=== PATIENT | male | born 1940 | race Caucasian/White ===

== ENCOUNTER 2021-05-02 13:23 | Outpatient (REF) | payer MEDICARE, SELFPAY ==
--- OUTSIDE RECORDS SUMMARY | 2021-05-02 13:55 | XMS_ITS | Encounter Summary ---
:1940 Author Organization Department [facility] Address [address] [place] [id number] Care Team Providers Name Role Phone KEMAR GENTILE Primary Care Provider Unavailable Insurance Providers: All historical and current Section Date Range: From patient's date of to the date document was created.This section includes the names of all active insurance providers for the patient. Insurance Type of Plan Start of End of Group Member Insurance Policy P atient's Provider Coverage Name Policy Policy Number ID Provider's Santana's Relationship Coverage Coverage Telephone Name to Policy Number Santana MEDICARE MEDICARE PART Apr 16, PART A [id number] [id number] Edwina LARSEN OBRoshni PATIENT (WNR) (M) A 2007 06A 1 RT Selected Encounter This section includes the information on record at [place] for the Encounter. Date/Time Encounter Type Encounter Description Reason Provider Source Mar 30, 2021 02:51 Outpatient Encounter COMMUNITY CARE PM CONSULT IHE Encounter Template Text not used by [facility] Plan of Treatment: Future Appointments (+ 6 months) and Future Tests (+/- 45 days) The Plan of Treatment section includes future care activities for the patient from all [place] treatment facilities. This section includes future appointments and future orders which are active, pending or scheduled.Future Appointments This section includes appointments that were scheduled to occur 6 months from the date of the Encounter, up to a maximum of 20 appointments. The [facility] Appointment Date/Time Appointment Type Appointment Facili ty Name May 16, 2021 01:00 PM AMBULATORY - MEDICINE [facility] Active, Pending, and Scheduled Orders This section includes a listing of several types of active, pending, and scheduled orders, including clinic medications orders, diagnostic test orders, procedure orders and consult orders; where the start date of the order is 45 days before the date of the Encounter or 45 days after the date of the Encounter. The data comes from all [place] treatment facilities. Test Date/Time Test Type Test Details Facility Name May 14, 2021 12:00 AM Laboratory - Chemistry CBC PROFILE [place] Order BLOOD(LAV-EDTA) SP [facility] May 14, 2021 12:00 AM Laboratory - Chemistry P4 [place] Order GLU,BUN,CREAT,LYTES, [facility] CA LT GREEN(LI HEP) PLASMA SP May 14, 2021 12:00 AM Laboratory - Chemistry LIVER PROFILE LT [place] Order GREEN(LI HEP) PLASMA [facility] SP May 14, 2021 12:00 AM Laboratory - Chemistry LDH,TOTAL LT [place] Order GREEN(LI HEP) PLASMA [facility] SP Social History: Smoking Status (Most current) and Tobacco Use (All prior to encounter date) This section includes the most current, and the historical, smoking and tobacco-related health factors from the [place] facility where the Encounter took place.Current Smoking Status This section includes the most current smoking, or tobacco-related health factor, from the [place] facility where the Encounter took place. Date/Time Current Smoking Status Comment Facility Jan 10, 2020 10:48 AM QUIT TOBACCO USE > 7 YEARS AGO [place] [facility] Tobacco Use History This section includes a history of the smoking, or tobacco-related health factors, that were collected on or before the date of the Encounter. The data comes from the [place] facility where the Encounter took place. Date/Time Smoking Status/Tobacco Use Comment [facility] Sep 21, 2019 03:54 PM QUIT TOBACCO USE > 7 YEARS [place] A[place] [facility] Dec 30, 2018 01:47 PM LIFETIME NON-TOBACCO USER [place] [facility] Aug 25, 2017 01:01 PM VA-TOBACCO FORMER USER [place] [facility] Aug 25, 2017 01:01 PM VA-TOBACCO QUIT 15 YRS OR [place] MORE [facility] Jan 07, 2017 05:34 PM QUIT TOBACCO USE > 7 YEARS [place] A[place] [facility] Jan 03, 2017 02:42 PM LIFETIME NON-TOBACCO USER [place] [facility] Nov 28, 2016 07:51 AM QUIT TOBACCO USE > 7 YEARS [place] AGO Former user of tobacco products quit years ago [facility] Jun 11, 2015 06:09 AM LIFETIME NON-TOBACCO USER LEWIS STOLL [facility] Nov 01, 2003 09:44 AM HISTORY OF SMOKING LEWIS STOLL [facility] Dec 21, 2002 11:18 AM QUIT TOBACCO USE > 7 YEARS [place] AGO [facility] August 10, 2002 10:47 AM HISTORY OF SMOKING LEWIS STOLL [facility] Apr 27, 2001 09:29 AM HISTORY OF SMOKING LEWIS RODGERST [facility] Advance Directives: All historical and current Section Date Range: From patient's date of to the date document was created. This section includes ALL of a patient's completed or amended [facility] Advance and Rescinded Directives. The entries below indicate that a directive exists for the patient, but an actual copy is not included with this document. The data comes from all [place] facilities. Date Advance Directives Provider Source August 08, 2015 ADVANCE DIRECTIVE LEWIS Huddleston [facility] Encounter Notes: All associated encounter notes This section contains the clinical notes associated to the Encounter. Date/Time Encounter Note(s) Provider Source Mar 30, 2021 02:51 PM NONVA NOTE: BONY GARZA [facility] LOCAL TITLE: COMMUNITY CARE COORDINATION PLAN STANDARD TITLE: NONVA NOTE DATE OF NOTE: MAR 30, 2021@14:51 ENTRY DATE: APR 02, 2021@09:00:05 AUTHOR: BONY GARZA COSIGNER: URGENCY: STATUS: COMPLETED COMMUNITY CARE COORDINATION PLAN Has ADDE NDA self-presented to community emergency fa cility Emergency Notification Intake Date Presenting to the Facility: Mar @ 2 :51 pm [facility] Care Hospital Name: Hospital: [facility] Address: [address] [place] [address] City: [place] State: [place] Zip Code: [address] Chief complaint: Altered Mental Status Primary Diagnosis: Patient Admitted? Unknown Community Facility Point of Contact: Name: [employer] Notes in JLV Notification was completed on: 03/31/21 @ 7:50 am EST Patient Discharged: Notification ID #[id number] EOC approved under 1703 by the National ER Notif ication Team [employer] Referral #[id number] /myranda/ BONY GARZA Signed: 04/02/2021 09:03 Receipt Acknowledged By: 04/02/2021 14:36 /myranda/ WILBER DOYLE RN [facility] 04/09/2021 ADDENDUM STATUS: COMPLETED Requested records. /jessie DOYLE RN [facility] Signed: 04/09/2021 10:48
--- OUTSIDE RECORDS SUMMARY | 2021-05-02 13:56 | XMS_ITS | Encounter Summary ---
:1940 Author Organization Department [facility] Address [address] [place] [address] Care Team Providers Name Role Phone KEMAR [...] MEDICARE MEDICARE PART Apr 16, PART A [id number] Edwina LARSEN OBE PATIENT (WNR) (M) A 2007 08A 1 RT Selected Encounter This section includes the information on record at [place] for the Encounter. 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 Date/Time Primary/Secondary Diagnosis Name Provider Source Diagnosis Jan 29, 2021 PRIMARY Chronic CHUCK CAMPO H LEWIS MARTINEZ 02:21 PM lymphocytic leuk [facility] of B-cell type not achieve remis Plan of Treatment: Future Appointments (+ 6 months) and Future Tests (+/- 45 days) The Plan of Treatment section includes future care activities for the patient from all [place] treatment facilities. This section includes future appointments and future orders which are active, pending or scheduled.Future Appointments This section includes appointments that were scheduled to occur 6 months from the date of the Encounter, up to a maximum of 20 appointments. The data comes from all [facility]. Appointment Date/Time Appointment Type Appointment Facili ty Name May 16, 2021 01:00 PM AMBULATORY - MEDICINE [facility] Active, Pending, and Scheduled Orders This section includes a listing of several types of active, pending, and scheduled orders, including clinic medications orders, diagnostic test orders, procedure orders and consult orders; where the start date of the order is 45 days before the date of the Encounter or 45 days after the date of the Encounter. The data comes from all [place] treatment facilities. Test Date/Time Test Type Test Details Facility Name Jan 29, 2021 12:00 AM Laboratory - Chemistry LIVER PROFILE LT [facility] Order GREEN(LI HEP) PLASMA [facility] Jan 29, 2021 12:00 AM Laboratory - Chemistry CBC PROFILE [facility] Order BLOOD(LAV-EDTA) SP [facility] Jan 29, 2021 12:00 AM Laboratory - Chemistry P4 [facility] Order GLU,BUN,CREAT,LYTES, [facility] CA LT GREEN(LI HEP) PLASMA SP Lab Results: +/- 30 days of the encounter This section includes the Chemistry and Hematology Lab Results on record with [facility] for the patient. Radiology Reports and Pathology Reports are provided separately, in subsequent sections.Lab Results This section contains the Chemistry/Hematology Results that were resulted 30 days before or 30 days after the date of the Encounter. Date/Time Source Result Type Result - Unit Interpretation Reference Range Comment Jan 16, 2021 [facility] P4 GLU,BUN,CREAT,LYTES,CA Specimen Type: PLASMA 12:35 PM [facility] Comment: Specimen 1+ Hemolysis Specimen 1+ Icteric Tests performed on [place] (405) SN:[id number] Ordering Provider: CHUCK CAMPO Report Released Date/Time: Sep 26, 2020 02:04 PM [facility] [address] [facility] [address] Performing Lab: [facility] [address] [facility] [address] UREA NITROGEN 15 mg/dL 7-25 SODIUM 136 mmol/L 135-145 POTASSIUM 4.3 mmol/L 3.5-5.0 CHLORIDE 105 mmol/L 100-110 CARBON DIOXIDE 20 mmol/L 20-30 ANION GAP 11 mmol/L 4-16 GLUCOSE 128 mg/dL H 65-100 CREATININE 1.02 mg/dl 0.5-1.5 CALCIUM 9.3 mg/dL 8.5-10.5 eGFR 71 mL/min >60 Jan 16, 2021 12:35 PM [facility] LIVER PROFILE Specimen Type: PLASMA Comment: Specimen 1+ Hemolysis Specimen 1+ Icteric Tests performed on [place] [employer]otripsy (405) [id number] Ordering Provider: CHUCK CAMPO Report Released Date/Time: Sep 26, 2020 02:04 PM Reporting Lab: [facility] [address] [facility] [address] Performing Lab: [facility] [address] [place] [id number] PROTEIN, TOTAL 6.5 g/dL 6.0-8.5 ALBUMIN 3.7 g/dL 3.2-5.0 BILIRUBIN, TOTAL 2.3 mg/dL H 0.2-1.2 ALKALINE PHOSPHATASE 175 U/L H 40-150 ALT(SGPT) 27 U/L 7-52 AST(SGOT) 22 U/L 5-34 Jan 16, 2021 12:35 PM [facility] CBC PROFILE Specimen Type: BLOOD No comment enter ed. Ordering Provider: CHUCK CAMPO Report Released Date/Time: Sep 26, 2020 02:04 PM Reporting Lab: [facility] [address] [facility] [address] Performing Lab: [facility] [address] [facility] [address] WBC 13.2 10*3/uL H 4.5-11.0 RBC 5.27 10*6/uL 4.23-5.66 HGB 14.7 g/dl 12.8-17 HEMATOCRIT 44.7 % 39.2-50.4 MCV 84.8 fl 82-99 MCH 27.9 pg 26.2-32.6 MCHC 32.9 g/dl 30.8-35.1 PLT 179 10*3/uL 140-360 MPV 10.1 fl 9.2-12.4 RDW 13.8 % 12.0-16.0 LYMPH % 64.9 % H 14.0-42.3 MONO % 4.0 % L 5.1-13.7 NEUT % 28.7 % L 43.7-75.8 EOS % 1.4 % 0.4-6.8 BASO % 0.7 % 0.1-2.0 IG % 0.3 % 0.0-0.7 NUCLEATED RED CELLS 0.0 /100 WBC 0.0-0.0 ABSOLUTE IG 0.0 10*3/uL 0-0.06 ABSOLUTE BASOPHILS 0.1 10*3/uL 0.01-0.13 ABSOLUTE EOS. 0.2 10*3/uL 0.03-0.44 ABSOLUTE LYMPHOCYTES 8.5 10*3/uL H 1.0-3.2 ABSOLUTE MONOCYTES 0.5 10*3/uL 0.3-1.1 ABSOLUTE GRANULOCYTES 3.8 10*3/uL 2.2-7. 6 ABSOLUTE NRBC 0.00 10*3/uL 0-0 Jan 16, 2021 12:35 [place] DIFF CELLAVISION Specimen Type: BLOOD PM [facility] Comment: Tests performed on [employer] Cellavision (405) Ordering Provider: CHUCK CAMPO Report Released Date/Time: Sep 26, 2020 02:04 PM [facility] [address] [facility] [address] [facility]: [facility] [address] [facility] [address] NEUTRO/SEGS % 28.8 % LYMPHOCYTE % 64.9 % MONOCYTE % 2.7 % EOSINOPHIL % 3.6 % SMUDGE CELLS 1+ LARGE PLATELET PRESENT Jan 16, 2021 12:35 [place] BILIRUBIN, DIRECT Specimen Type: PLASMA PM [facility] Comment: Specimen 1+ Hemolysis Specimen 1+ Icteric Tests performed on [place] [employer]otripsy (405) [id number] Ordering Provider: CHUCK CAMPO Report Released Date/Time: Sep 26, 2020 02:04 PM Reporting Lab: [place] [facility] [address] [facility] [address] [facility]forming [facility]: [facility] [address] [facility] [phone] BILIRUBIN, DIRECT 1.0 mg/dl H 0-0.5 Social History: Smoking Status (Most current) and Tobacco Use (All prior to encounter date) This section includes the most current, and the historical, smoking and tobacco-related health factors from the [place] facility where the Encounter took place.Current Smoking Status This section includes the most current smoking, or tobacco-related health factor, from the [place] facility where the Encounter took place. Date/Time Current Smoking Status Comment Facility Jan 10, 2020 10:48 AM QUIT TOBACCO USE > 7 YEARS AGO [place] [facility] Tobacco Use History This section includes a history of the smoking, or tobacco-related health factors, that were collected on or before the date of the Encounter. The data comes from the [place] facility where the Encounter took place. Date/Time Smoking Status/Tobacco Use Comment [facility] Sep 21, 2019 03:54 PM QUIT TOBACCO USE > 7 YEARS [place] A[place] [facility] Dec 30, 2018 01:47 PM LIFETIME NON-TOBACCO USER [place] [facility] Aug 25, 2017 01:01 PM VA-TOBACCO FORMER US[place] [facility] Aug 25, 2017 01:01 PM VA-TOBACCO QUIT 15 YRS OR [place] MORE [facility] Jan 07, 2017 05:34 PM QUIT TOBACCO USE > 7 YEARS [place] A[place] [facility] Jan 03, 2017 02:42 PM LIFETIME NON-TOBACCO USER [place] [facility] Nov 28, 2016 07:51 AM QUIT TOBACCO USE > 7 YEARS [place] A[place] Former user of tobacco products quit years ago [facility] Jun 11, 2015 06:09 AM LIFETIME NON-TOBACCO USER [place] [facility] Nov 01, 2003 09:44 AM H[place]ORY OF SMOKING [place] [facility] Dec 21, 2002 11:18 AM QUIT TOBACCO USE > 7 YEARS [place] [facility] August 10, 2002 10:47 AM H[place]ORY OF SMOKING [place] [facility] Apr 27, 2001 09:29 AM H[place]ORY OF SMOKING [place] [facility] Advance Directives: All historical and current Section Date Range: From patient's date of to the date document was created. This section includes ALL of a patient's completed or amended [place] Advance and Rescinded Directives. The entries below indicate that a directive exists for the patient, but an actual copy is not included with this document. The data comes from all [place] facilities. Date Advance Directives Provider Source August 08, 2015 ADVANCE DIRECTIVE LEWIS Huddleston [facility] Encounter Notes: All associated encounter notes This section contains the clinical notes associated to the Encounter. Date/Time Encounter Note(s) Provider Source Jan 29, 2021 02:22 PM HEMATOLOGY AND ONCOLOGY TELEPHONE ENCO UNTER NOTE: CHUCK CAMPO LOCAL TITLE: Telephone Note/Oncology [facility] STANDARD TITLE: HEMATOLOGY AND ONCOLOGY TELEPHON E ENCOUNTER NOTE DATE OF NOTE: JAN 29, 2021@14:22 ENTRY DATE: JAN 29, 2021@14:23:04 AUTHOR: CHUCK CAMPO EXP COSIGNER: URGENCY: STATUS: COMPLETED I called the patient. Bryce is up some from priors. He denies p ruritis, abd pain, yellow eyes or skin or feeling poorly in any way. I entered a CMP and he will return this week to have this repeated. May need to hold ibrutinib if it is worse. /myranda/ CHUCK CAMPO Staff Physician Hematology/Oncology Signed: 01/29/2021 14:24
--- OUTSIDE RECORDS SUMMARY | 2021-05-02 13:56 | XMS_ITS | Encounter Summary ---
:1940 Author Organization [facility] Address [address] [place] [id number] Care Team Providers Name Role Phone KEMAR [...] MEDICARE MEDICARE PART Apr 16, PART A [id number] [phone] Edwina LARSEN OBE PATIENT (WNR) (M) A 2007 1 RT Selected Encounter This section includes the information on record at CT for the Encounter. Date/Time Encounter Type Encounter Reason Provider Source Description Jan 16, 2021 OFFICE O/P EST ONCOLOGY/TUMOR ICD-10-CM N13.39 Portia CAMPO 01:00 PM LOW 20-29 MIN Other H hydronephrosis with Provider Comments: Chronic lymphoid leukemia, disease (SCT [id number]) IHE Encounter Template Text not used by CT Assessments - Encounter Diagnoses This section includes the primary and secondary diagnoses documented forthe Encounter. Date/Time Primary/Secondary Diagnosis Name Provider Source Diagnosis Jan 16, 2021 PRIMARY Other hydronephrosis CHELE CAMPOT LEWIS MARTINEZ 01:40 PM H [facility] Plan of Treatment: Future Appointments (+ 6 months) and Future Tests (+/- 45 days) The Plan of Treatment section includes future care activities for the patient from all CT treatment facilities. This section includes future appointments and future orders which are active, pending or scheduled.Future Appointments This section includes appointments that were scheduled to occur 6 months from the date of the Encounter, up to a maximum of 20 appointments. The data comes from all [facility]. Appointment Date/Time Appointment Type Appointment Facili ty Name May 16, 2021 01:00 PM AMBULATORY - MEDICINE [facility] Active, Pending, and Scheduled Orders This section includes a listing of several types of active, pending, and scheduled orders, including clinic medications orders, diagnostic test orders, procedure orders and consult orders; where the start date of the order is 45 days before the date of the Encounter or 45 days after the date of the Encounter. The data comes from all CT treatment facilities. Test Date/Time Test Type Test Details Facility Name Jan 29, 2021 12:00 AM Laboratory - Chemistry LIVER PROFILE LT [facility] Order GREEN(LI HEP) PLASMA [facility] SP Jan 29, 2021 12:00 AM Laboratory - Chemistry CBC PROFILE [facility] Order BLOOD(LAV-EDTA) SP [facility] Jan 29, 2021 12:00 AM Laboratory - Chemistry P4 [facility] Order GLU,BUN,CREAT,LYTES, [facility] CA LT GREEN(LI [...] Interpretation Reference Range Comment Jan 16, 2021 [facility] P4 GLU,BUN,CREAT,LYTES,CA Specimen Type: PLASMA 12:35 PM [facility] Comment: Specimen 1+ Hemolysis Specimen 1+ Icteric Tests performed on [employer] Risk [employer] (405) SN:[id number] Ordering Provider: CHUCK CAMPO Report Released Date/Time: Sep 26, 2020 02:04 PM [facility] [address] [facility] [id number] Performing Lab: [facility] [address] [facility] [address] UREA NITROGEN 15 mg/dL 7-25 SODIUM 136 mmol/L 135-145 POTASSIUM 4.3 mmol/L 3.5-5.0 CHLORIDE 105 mmol/L 100-110 CARBON DIOXIDE 20 mmol/L 20-30 ANION GAP 11 mmol/L 4-16 GLUCOSE 128 mg/dL H 65-100 CREATININE 1.02 mg/dl 0.5-1.5 CALCIUM 9.3 mg/dL 8.5-10.5 eGFR 71 mL/min >60 Jan 16, 2021 12:35 PM [facility] LIVER PROFILE Specimen Type: PLASMA Comment: Specimen 1+ Hemolysis Specimen 1+ Icteric Tests performed on [employer] (405) SN:[id number] Ordering Provider: CHUCK CAMPO Report Released Date/Time: Sep 26, 2020 02:04 PM Reporting Lab: [facility] [address] [facility] [address] Performing Lab: [facility] [address] [place] [phone] PROTEIN, TOTAL 6.5 g/dL 6.0-8.5 ALBUMIN 3.7 g/dL 3.2-5.0 BILIRUBIN, TOTAL 2.3 mg/dL H 0.2-1.2 ALKALINE PHOSPHATASE 175 U/L H 40-150 ALT(SGPT) 27 U/L 7-52 AST(SGOT) 22 U/L 5-34 Jan 16, 2021 12:35 PM [facility] CBC PROFILE Specimen Type: BLOOD No comment enter ed. Ordering Provider: CHUCK CAMPO Report Released Date/Time: Sep 26, 2020 02:04 PM Reporting Lab: [facility] [address] [facility] [address] Performing Lab: [facility] [address] [facility] [address] WBC 13.2 10*3/uL H 4.5-11.0 RBC 5.27 [...] 0.00 10*3/uL 0-0 Jan 16, 2021 12:35 [place] DIFF CELLAVISION Specimen Type: BLOOD PM [facility] Comment: Tests performed on [employer] (405) Ordering Provider: CHUCK CAMPO Report Released Date/Time: Sep 26, 2020 02:04 PM [facility] [address] [facility] [address] Per[facility] [address] [facility] [address] NEUTRO/SEGS % 28.8 % LYMPHOCYTE % 64.9 % MONOCYTE % 2.7 % EOSINOPHIL % 3.6 % SMUDGE CELLS 1+ LARGE PLATELET PRESENT Jan 16, 2021 12:35 [facility] BILIR[facility], DIRECT Specimen Type: PLASMA PM [facility] Comment: Specimen 1+ Hemolysis Specimen 1+ Icteric Tests performed on [employer] (405) [id number] Ordering Provider: CHUCK CAMPO Report Released Date/Time: Sep 26, 2020 02:04 PM Reporting [facility] [address] [facility] [address] Performing [facility]: [facility] [address] [facility] [address] BILIRUBIN, DIRECT 1.0 mg/dl H 0-0.5 Vital Signs: All taken on the encounter date This section contains inpatient and outpatient Vital Signs collected on the date of the Encounter. Date/Time Temperature Pulse Blood Respiratory SP02 Pain Height Weight Eladio dy Source Pressure Rate Mass Index Jan 16, 97.7 F 82 160/90 18 /min 96 % 0 200 lb 37 WHITE 2020 01:15 /min mm[Hg] [place] [facility] Social History: Smoking Status (Most current) and Tobacco Use (All prior to encounter date) This section includes the most current, and the historical, smoking and tobacco-related health factors from the CT facility where the Encounter took place.Current Smoking Status This section includes the most current smoking, or tobacco-related health factor, from the CT facility where the Encounter took place. Date/Time Current Smoking Status Comment Facility Jan 10, 2020 10:48 AM QUIT TOBACCO USE > 7 YEARS AGO [place] [facility] Tobacco Use History This section includes a history of the smoking, or tobacco-related health factors, that were collected on or before the date of the Encounter. The data comes from the CT facility where the Encounter took place. Date/Time Smoking Status/Tobacco Use Comment [facility] Sep 21, 2019 03:54 PM QUIT TOBACCO USE > 7 [place]ARS [place] [facility] Dec 30, 2018 01:47 PM LIFETIME NON-TOBACCO USER [place] [facility] Aug 25, 2017 01:01 PM VA-TOBACCO FORMER USER [place] [facility] Aug 25, 2017 01:01 PM VA-TOBACCO QUIT 15 YRS OR [place] MORE [facility] Jan 07, 2017 05:34 PM QUIT TOBACCO USE > 7 YEARS [place] A[place] [facility] Jan 03, 2017 02:42 PM LIFETIME NON-TOBACCO USER [place] [facility] Nov 28, 2016 07:51 AM QUIT TOBACCO USE > 7 YEARS [place] AGO Former user of tobacco products quit years ago [facility] Jun 11, 2015 06:09 AM LIFETIME NON-TOBACCO USER [place] [facility] Nov 01, 2003 09:44 AM HISTORY OF SMOKING [place] [facility] Dec 21, 2002 11:18 AM QUIT TOBACCO USE > 7 [place]ARS [place] A[place] [facility] August 10, 2002 10:47 AM H[place]ORY OF SMOKING [place] [facility] Apr 27, 2001 09:29 AM H[place]ORY OF SMOKING [place] [facility] Advance Directives: All historical and current Section Date Range: From patient's date of to the date document was created. This section includes ALL of a patient's completed or amended VA Advance and Rescinded Directives. The entries below indicate that a directive exists for the patient, but an actual copy is not included with this document. The data comes from all CT facilities. Date Advance Directives Provider Source August 08, 2015 ADVANCE DIRECTIVE LEWIS Huddleston [facility] Encounter Notes: All associated encounter notes This section contains the clinical notes associated to the Encounter. Date/Time Encounter Note(s) Provider Source Jan 16, 2021 01:23 PM HEMATOLOGY AND ONCOLOGY NOTE: CHELE CAMPO LOCAL TITLE: Hematology Note/Medicine [facility] STANDARD TITLE: HEMATOLOGY AND ONCOLOGY NOTE DATE OF NOTE: JAN 16, 2021@13:23 ENTRY DATE: JAN 16, 2021@13:24:01 AUTHOR: CHUCK CAMPO EXP COSIGNER: URGENCY: STATUS: COMPLETED 80 year old male returns for follow up management of his CLL. Resumed ibrutinib 12/06/19. HPI: # CLL - diagnosed Fall 2013 CT scan at that time demonstrated extensive retroperitoneal adenopathy and borderline spleno megaly. A CBC indicated a lymphocytosis with CLL on flow cytom etry 07/2015 - Increasing adenopathy on Ct scan. Incr easing fatigue FISH Panel identified 11q23 deletion - 10/2015 - Started Ibrutinib for increasing ame opathy with good response -03/2017 - Noted to have new significant anemia-i rodney deficient in the setting or rectal bleeding. Per Dr. Rivera 's documentation he was extremely relucant to get a colonoscopy. He calvin mmended that he stop the ibrutinib given that it can worsen bleeding and started him on iron - 03/2018 - Increasing adneopathy in the neck and upward trend in his WBC and therefore resumed Ibrutinib - 02/2019 - Presented with dyspnea and found to have worsening pulmonary infiltrate and GGO as well as new afib. Ibrutin ib held - 07/2019- WOrsening adenopathy in neck and groin . Resumed ibrutinib at 280mg - 09/2019 ibrutinib held - 01/2020 resumed and continued, tolerated Interval Hx/ROS He states that he is doing g reat. He denies fevers, illnesses/infections, night sweats, weight loss, palpabl e or bothersome lymph nodes, headaches, chest pain. Leg swelling is baseline. He has no concerns tod ay. SOCIAL HISTORY (from record): Living Status/Marital Status:. 2nd marri age x30 + years. 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 50 + pk yr. Alcohol: Infrequent Etoh. Heavier for a short p eriod surrounding his divorce. Drugs: FAMILY HISTORY (from record): Mother- in her 80s from unknown causes Father- Had prostate cancer and dided in his 80s Active Outpatient Medications (excluding Supplie s): Active Outpatient Medications Status 1) ACCU-CHEK GUIDE (GLUCOSE) TEST STRIP USE 1 TEST STRIP ACTIVE NEEDED TO TEST BLOOD GLUCOSE LEVEL 2) IBRUTINIB 140MG ORAL CAP TAKE TWO CAPSULES BY MOUTH ACTIVE EVERY DAY WITH OR WITHOUT FOOD. AVOID EAT ING GRAPEFRUIT, [place] ORANGES. DO NOT CUT, CRUSH, CHEW OR DISSOLVE (ORAL CHEMOTHERAPY) 3) METFORMIN HCL 500MG TAB TAKE ONE TABLET BY MOUTH ACTIVE TWICE DAILY WITH MEALS FOR DIABETES 4) TERAZOSIN HCL 1MG CAP TAKE ONE CAPSULE BY OUT AT ACTIVE BEDTIME FOR PROSTATE. THIS REPLACES TAMSU LOSIN. Active Non-VA Medications Status 1) Non-VA GLUCOSAMINE CAP/TAB BY MOUTH EVERY DAY ACTIVE 5 Total Medications PHYSICAL EXAM: BP: 160/90 (01/16/2021 13:15) recheck 171/89 Pulse: 82 (01/16/2021 13:15) Temp: 97.7 F [36.5 C] (01/16/2021 13:15) Resp: 18 (01/16/2021 13:15) HT(in): 62 in [157.5 cm] (04/19/2019 13:55) WT(lbs):200 lb [90.9 kg] (01/16/2021 13:15) 01/16/21 @ 1315 PULSE OXIMETRY: 96 General: alert, appropriately conversant, NAD HEENT: normocephalic, atraum atic, PERRLA, EOMI, mmm, oropharynx without lesions or exudates Neck: no palpable LAD in neck, supra/infraclav, axillary areas bilaterally CVS: rrr, no MRG Chest: CTAB, no crackles or wheezes Abdomen: NABS, soft, NT, ND, no palpable organom egaly Lower extremities: no significant edema, palpabl e cords, erythema, warmth or calf tenderness Skin: on abdomen, legs and arms, not really on b ack, there is appreciable maculopapular rash with exco riations and some scabbing appreciable, some likely venous stasis changes on lower legs bilaterally Psych: Appropriate affect and mood. Neuro: independently ambulatory, moving all 4, C N2-12 grossly intact LABS BLOOD Jan 16 Sep 26 Jul 06 Apr 11 Reference 2020 2020 2020 2020 12:35 13:31 10:36 12:59 Units Ranges WBC 13.2 H 16.3 H 37.5 H* 54.3 H*10*3/uL 4.5 - 11 RBC 5.27 5.42 6.05 H 5.71 H 10*6/uL 4.23 - 5.66 HGB 14.7 14.8 16.4 15.0 g/dl 12.8 - 17 HCT 44.7 45.4 50.6 H 48.6 % 39.2 - 50.4 MCV 84.8 83.8 83.6 85.1 fl 82 - 99 MCH 27.9 27.3 27.1 26.3 pg 26.2 - 32.6 MCHC 32.9 32.6 32.4 30.9 g/dl 30.8 - 35.1 PLT 179 165 180 176 10*3/uL 140 - 360 MPV 10.1 9.6 9.9 9.9 fl 9.2 - 12.4 IPF 1 0.092 % 0 - 8.5 RDW 13.8 13.9 14.3 13.9 % 12 - 16 RDW-SD fl 38 - 50 NEUT % 28.7 L 25.5 L 14.0 L canc % 43.7 - 75.8 LYMPH % 64.9 H 69.1 H 82.5 H c anc % 14 - 42.3 MONO % 4.0 L 2.9 L 1.8 L canc % 5.1 - 13.7 EOS % 1.4 1.6 0.9 canc % .4 - 6.8 BASO % 0.7 0.7 0.5 canc % .1 - 2 IG% 0.3 0.2 0.3 canc % 0 - .7 NRBC #/100WBC 0 - 0 NEUT# 3.8 4.2 5.2 canc 10*3/uL 2.2 - 7.6 Lymph# 8.5 H 11.3 H 31.0 H canc 10*3/uL 1 - 3.2 PLASMA GLUCOSE BUN CR EAT EGFR NA Ref range low 65 7 .5 60 135 Ref range high 100 25 1 .5 145 mg/dL mg/dL mg /dl mL/min mmol/L [b] Sep 26, 2020 13:31 237 H 12 1.2 >60 136 PLASMA K CL CO2 ANI GA CA P Ref range low 3.5 100 20 4 8.5 Ref range high 5 110 30 16 10.5 mmol/L mmol/L mmol/ L mmol/L mg/dL [b] Sep 26, 2020 13:31 4.2 105 22 9 9.2 PLASMA T BILI D BILI ALK PH G-G TP SGOT SGPT FIB-4 O Ref range low .2 0 40 1 0 5 7 Ref range high 1.2 .5 150 6 5 34 52 2.67 mg/dL mg/dl U/L U /L U/L U/L INDEX [b] Sep 26, 2020 13:31 1.8 H 0.7 H 164 H 17 26 A/P: 80 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 DOing well on current dose. We will continue thi sCarlos Eduardo Lowry - his BP was up today, 160/90 and 171/89 - no symptoms and he rushed here, was stuck in an elevat or prior to this appt and he thinks this is nerves. He is going to check his BP at home (he has a cuff), and report the value back to us. Ibrutinib can increas e BP - it may be that he will need a BP med while he is on this. We can see what his home reading jerome ws. He is also requesting a refill on his terazosin. rtc 4 months with labs. He was encouraged to sharmila l with concerns in the mean time. /myranda/ CHUCK Alston [place] Staff Physician Hematology/Oncology Signed: 01/16/2021 13:40 Receipt Acknowledged By: * AWAITING SIGNATURE * KACEY LOWRY
--- OUTSIDE RECORDS SUMMARY | 2021-05-02 13:57 | XMS_ITS | Encounter Summary ---
:[address] [facility] Address [address] [place] [address] Care Team Providers Name Role Phone KEMAR [...] MEDICARE MEDICARE PART Apr 16, PART A [id number] [phone] Edwina LARSEN OBE PATIENT (WNR) (M) A 2007 06A 1 RT Selected Encounter This section includes the information on record at [place] for the Encounter. Date/Time Encounter Type Encounter Reason Provider Source Description Oct 03, 2020 HC PRO PHONE TELEPHONE TRIAGE ICD-10-CM Z71.89 LISA ARELLANO BIJAL 01:53 PM CALL 5-10 MIN Other specified counseling with Provider Comments: Other specified counseling IHE Encounter Template Text not used by [facility] Assessments - Encounter Diagnoses This section includes the primary and secondary diagnoses documented forthe Encounter. Date/Time Primary/Secondary Diagnosis Name Provider Source Diagnosis Oct 03, 2020 PRIMARY Other specified ELMO ARELLANO 01:53 PM counseling [facility] Plan of Treatment: Future Appointments (+ 6 months) and Future Tests (+/- 45 days) The Plan of Treatment section includes future care activities for the patient from all [place] treatment facilities. This section includes future appointments and future orders which are active, pending or scheduled.Future Appointments This section includes appointments that were scheduled to occur 6 months from the date of the Encounter, up to a maximum of 20 appointments. The [facility] [place] [facility] Appointment Date/Time Appointment Type Appointment Facili ty Name Jan 16, 2021 01:00 PM AMBULATORY - MEDICINE [facility] Surgical Procedures: All associated to the encounter This section includes all Surgical Procedures and Surgical Procedure Notes associated to the Encounter.Surgical Procedures This section includes all Surgical Procedures associated to the Encounter.Surgical Procedure Date/Time Procedure Procedure Type Procedure Provider Source Qualifiers Oct 03, 2020 HC PRO PHONE HC PRO PHONE ELMO ARELLANO 01:53 PM CALL 5-10 MIN CALL 5-10 MIN Surgical Notes There are no notes associated with this procedure. Lab Results: +/- 30 days of the encounter This section includes the Chemistry and Hematology Lab Results on record with [place] for the patient. Radiology Reports and Pathology Reports are provided separately, in subsequent sections.Lab Results This section contains the Chemistry/Hematology Results that were resulted 30 days before or 30 days after the date of the Encounter. Date/Time Source Result Type Result - Unit Interpretation Reference Range Comment Sep 26, 2020 01:31 PM [facility] CBC PROFILE Specimen Type: BLOOD No comment enter ed. Ordering Provider: CHUCK CAMPO Report Released Date/Time: Jul 06, 2020 11:32 AM Reporting Lab: [facility] [address] [facility] [address] Performing Lab: [facility] [address] [facility] [address] WBC 16.3 10*3/uL H 4.5-11.0 RBC 5.42 10*6/uL 4.23-5.66 HGB 14.8 g/dl 12.8-17 HEMATOCRIT 45.4 % 39.2-50.4 MCV 83.8 fl 82-99 MCH 27.3 pg 26.2-32.6 MCHC 32.6 g/dl 30.8-35.1 PLT 165 10*3/uL 140-360 MPV 9.6 fl 9.2-12.4 RDW 13.9 % 12.0-16.0 LYMPH % 69.1 % H 14.0-42.3 MONO % 2.9 % L 5.1-13.7 NEUT % 25.5 % L 43.7-75.8 EOS % 1.6 % 0.4-6.8 BASO % 0.7 % 0.1-2.0 IG % 0.2 % 0.0-0.7 NUCLEATED RED CELLS 0.0 /100 WBC 0.0-0.0 ABSOLUTE IG 0.0 10*3/uL 0-0.06 ABSOLUTE BASOPHILS 0.1 10*3/uL 0.01-0.13 ABSOLUTE EOS. 0.3 10*3/uL 0.03-0.44 ABSOLUTE LYMPHOCYTES 11.3 10*3/uL H 1.0-3. 2 ABSOLUTE MONOCYTES 0.5 10*3/uL 0.3-1.1 ABSOLUTE GRANULOCYTES 4.2 10*3/uL 2.2-7. 6 ABSOLUTE NRBC 0.00 10*3/uL 0-0 Sep 26, 2020 [facility] P4 GLU,BUN,CREAT,LYTES,CA Specimen Type: PLASMA 01:31 PM [facility] Comment: Tests performed on [employer] (405) SN:[id number] Ordering Provider: CHUCK CAMPO Report Released Date/Time: Jul 06, 2020 11:32 AM Reporting [facility] [address] [facility] [address] Performing Lab: [facility] [address] [facility] [address] UREA NITROGEN 12 mg/dL 7-25 SODIUM 136 mmol/L 135-145 POTASSIUM 4.2 mmol/L 3.5-5.0 CHLORIDE 105 mmol/L 100-110 CARBON DIOXIDE 22 mmol/L 20-30 ANION GAP 9 mmol/L 4-16 GLUCOSE 237 mg/dL H 65-100 CREATININE 1.15 mg/dl 0.5-1.5 CALCIUM 9.2 mg/dL 8.5-10.5 eGFR 62 mL/min >60 Sep 26, 2020 01:31 PM [facility] LIVER PROFILE Specimen Type: PLASMA Comment: Tests performed on [employer] (405) SN:[id number] Ordering Provider: CHUCK CAMPO Report Released Date/Time: Jul 06, 2020 11:32 AM Reporting Lab: [facility] [address] [facility] [address] Performing Lab: [facility] [address] [facility] [address] PROTEIN, TOTAL 6.6 g/dL 6.0-8.5 ALBUMIN 3.4 g/dL 3.2-5.0 BILIRUBIN, TOTAL 1.8 mg/dL H 0.2-1.2 ALKALINE PHOSPHATASE 164 U/L H 40-150 ALT(SGPT) 26 U/L 7-52 AST(SGOT) 17 U/L 5-34 Sep 26, 2020 01:31 [facility] DIFF COUNT (BLOOD)SCOPE Specimen Type: BLOOD PM [facility] No comment enter ed. Ordering Provider: CHUCK CAMPO Report Released Date/Time: Jul 06, 2020 11:32 AM Reporting Lab: [facility] [address] [facility] [address] Performing Lab: [facility] [address] [facility] [address] SEGS/NEUTROPHILS 26 % BANDS 0 % LYMPHS 70 % MONOS 3 % EOSINOPHILS 1 % PLT. EST NORM Adq NORMOCYTIC Yes NORMOCHROMIC Yes SMUDGE CELLS 1+ Sep 26, 2020 01:31 [facility] BILIRUBIN, DIRECT Specimen Type: PLASMA PM [facility] Comment: Tests performed on [employer] (405) SN:[id number] Ordering Provider: CHUCK CAMPO Report Released Date/Time: Jul 06, 2020 11:32 AM Reporting Lab: [facility] [address] [facility] [address] Performing Lab: [facility] [address] [facility] [address] BILIRUBIN, DIRECT 0.7 mg/dl H 0-0.5 Social History: Smoking Status (Most current) and Tobacco Use (All prior to encounter date) This section includes the most current, and the historical, smoking and tobacco-related health factors from the [facility] where the Encounter took place.Current Smoking Status This section includes the most current smoking, or tobacco-related health factor, from the [place] facility where the Encounter took place. Date/Time Current Smoking Status Comment [facility] Jan 10, 2020 10:48 AM QUIT TOBACCO USE > 7 YEARS AGO [facility] Tobacco Use History This section includes a history of the smoking, or tobacco-related health factors, that were collected on or before the date of the Encounter. The data comes from the [place] facility where the Encounter took place. Date/Time Smoking Status/Tobacco Use Comment [facility] Sep 21, 2019 03:54 PM QUIT TOBACCO USE > 7 [place]ARS [place] [facility] Dec 30, 2018 01:47 PM LIFETIME NON-TOBACCO USER [place] [facility] Aug 25, 2017 01:01 PM VA-TOBACCO FORMER USER [place] [facility] Aug 25, 2017 01:01 PM VA-TOBACCO QUIT 15 YRS [place] MORE [facility] Jan 07, 2017 05:34 PM QUIT TOBACCO USE > 7 [place]ARS [place] [facility] Jan 03, 2017 02:42 PM LIFETIME NON-TOBACCO USER [place] [facility] Nov 28, 2016 07:51 AM QUIT TOBACCO USE > 7 YEARS [place] A[place] Former user of tobacco products quit years ago [facility] Jun 11, 2015 06:09 AM LIFETIME NON-TOBACCO USER [place] [facility] Nov 01, 2003 09:44 AM HISTORY OF SMOKING [place] [facility] Dec 21, 2002 11:18 AM QUIT TOBACCO USE > 7 [place] [facility] August 10, 2002 10:47 AM H[place]ORY OF SMOKING [place] [facility] Apr 27, 2001 09:29 AM HISTORY OF SMOKING [place] [facility] Advance Directives: All historical and current Section Date Range: From patient's date of to the date document was created. This section includes ALL of a patient's completed or amended [place] Advance and Rescinded Directives. The entries below indicate that a directive exists for the patient, but an actual copy is not included with this document. The data comes from all [place] facilities. Date Advance Directives Provider Source August 08, 2015 ADVANCE DIRECTIVE LEWIS RODGERS T [facility] Encounter Notes: All associated encounter notes This section contains the clinical notes associated to the Encounter. Date/Time Encounter Note(s) Provider Source Oct 03, 2020 01:53 PM TELEPHONE ENCOUNTER NOTE: [place]AN[place] [facility] LOCAL TITLE: VISN 1 CCC ACTION REQUIRED STANDARD TITLE: TELEPHONE ENCOUNTER NOTE DATE OF NOTE: OCT 03, 2020@13:53:50 ENTRY DATE: OCT 03, 2020@13:58:37 AUTHOR: ELMO ARELLANO EXP COSIGNER: URGENCY: STATUS: COMPLETED VISN 1 CCC ACTION REQUIRED Has ADDENDA * Type of call: CLINICAL INFORMATION/EDUCATION. Caller Response: ADM CALL RESOLVED SPOUSE called in for DAPHNE LARSEN ([phone]) . Comments: Patient's Graciela is ca lling to find out if her can get another rx for Bactrim, she states its helping, but he only has one more dose and he will be done tonight, she states the symptoms are not completely gone, please call her back Evaluation/Management Code: UNLISTED EVALUATION AND MANAGEMENT SERVICE ([id number]). Starting at: 10/03/2020 @ 1:53:50 PM Ending at: 10/03/2020 @ 1:56:45 PM Length: 2 minutes. Author: ELMO ARELLANO Caller Area: * [place] The following identifiers were used to verify th is patient: SSN. Chief Complaint: Not applicable to call. Class Code: Other specified counseling. Contact Patient's Email Address: /myranda/ ELMO ARELLANO MSA Signed: 10/03/2020 13:58 Receipt Acknowledged By: 10/03/2020 15:53 /myranda/ KACEY Laura MD 10/03/2020 ADDENDUM STATUS: COMPLETED Adding nurse to check in yasemin paulino on his symptoms after the course is completed (tonight) - I would suggest waiting a few days b efore prescribing another course. /myranda/ KACEY Laura MD Signed: 10/03/2020 15:54 Receipt Acknowledged By: 10/04/2020 11:03 /myradna/ ADRIAN DOYLE,RN,[facility] 10/04/2020 ADDENDUM STATUS: COMPLETED Contacted caregiver. She sta keyonna that the ABX is working but the rash is not gone yet. PMH: Recurrent widespread ra sh. Has been to [facility] w/o a differential DX obtained. States Bactrim has been the only medication that has worked. Caregiver stresses that her let the rash go untreated too long, this time. It was the worst outbreak they have seen. Has kindly requested another round of Bactrim. Added that she feels that w/o it, the rash will return and they will have to start over. If PCP is willing to prescribe, she aske d that it be overnighted, stating that traveling to [place] (today) would be diffic ult given everything that is going on. /es/ ADRIAN DOYLE,RN,[facility] Signed: 10/04/2020 10:47 Receipt Acknowledged By: * AWAITING SIGNATURE * KACEY MUNOZ 10/04/2020 ADDENDUM STATUS: COMPLETED Caregiver contacted/informed. Physical address for overnight delivery; [address] [place] [id number] /es/ ADRIAN DOYLE,RN,[facility] Signed: 10/04/2020 11:02 Receipt Acknowledged By: * AWAITING SIGNATURE * TANIYA MARKHAM
--- OUTSIDE RECORDS SUMMARY | 2021-05-02 13:57 | XMS_ITS | Encounter Summary ---
:1940 Author Organization [facility] Address [address] [place] [address] Care Team Providers Name Role Phone KEMAR [...] MEDICARE MEDICARE PART Apr 16, PART A [id number] [phone] Edwina LARSEN OBRoshni PATIENT (WNR) (M) A 2007 08A 1 RT Selected Encounter This section includes the information on record at [place] for the Encounter. Date/Time Encounter Type Encounter Description Reason Provider Source Sep 18, 2020 01:15 Outpatient Encounter TELEPHONE TRIAGE PM IHE Encounter Template Text not used by [facility] Plan of Treatment: Future Appointments (+ 6 months) and Future Tests (+/- 45 days) The Plan of Treatment section includes future care activities for the patient from all [place] treatment facilities. This section includes future appointments and future orders which are active, pending or scheduled.Future Appointments This section includes appointments that were scheduled to occur 6 months from the date of the Encounter, up to a maximum of 20 appointments. The [facility] [place] [facility] Appointment Date/Time Appointment Type Appointment Facili ty Name Sep 26, 2020 02:00 PM AMBULATORY - MEDICINE [facility] Jan 16, 2021 01:00 PM AMBULATORY - MEDICINE [facility] Lab Results: +/- 30 days of the encounter This section includes the Chemistry and Hematology Lab Results on record with [place] for the patient. Radiology Reports and Pathology Reports are provided separately, in subsequent sections.Lab Results This section contains the Chemistry/Hematology Results that were resulted 30 days before or 30 days after the date of the Encounter. Date/Time Source Result Type Result - Unit Interpretation Reference Range Comment Sep 26, 2020 01:31 PM [facility] CBC PROFILE Specimen Type: BLOOD No comment enter ed. Ordering Provider: CHUCK CAMPO Report Released Date/Time: Jul 06, 2020 11:32 AM Reporting Lab: [facility] [address] [facility] [address] Performing Lab: [facility] [address] [facility] [address] WBC 16.3 10*3/uL H 4.5-11.0 RBC 5.42 [...] NRBC 0.00 10*3/uL 0-0 Sep 26, 2020 [facility] P[facility] GLU,BUN,CREAT,LYTES,CA Specimen Type: PLASMA 01:31 PM [facility] Comment: Tests performed on [employer] (405) SN:[id number] Ordering Provider: CHUCK CAMPO Report Released Date/Time: Jul 06, 2020 11:32 AM Reporting [facility] [address] [facility] [address] Performing [facility]: [facility] [address] [facility] [address] UREA NITROGEN 12 mg/dL 7-25 SODIUM 136 mmol/L 135-145 POTASSIUM 4.2 mmol/L 3.5-5.0 CHLORIDE 105 mmol/L 100-110 CARBON DIOXIDE 22 mmol/L 20-30 ANION GAP 9 mmol/L 4-16 GLUCOSE 237 mg/dL H 65-100 CREATININE 1.15 mg/dl 0.5-1.5 CALCIUM 9.2 mg/dL 8.5-10.5 eGFR 62 mL/min >60 Sep 26, 2020 01:31 PM [facility] LIVER PROFILE Specimen Type: PLASMA Comment: Tests performed on [employer] (405) SN:[id number] Ordering Provider: CHUCK CAMPO Report Released Date/Time: Jul 06, 2020 11:32 AM Reporting [facility] [address] [facility] [address] Performing Lab: [facility] [address] [facility] [address] PROTEIN, TOTAL 6.6 g/dL 6.0-8.5 ALBUMIN 3.4 g/dL 3.2-5.0 BILIRUBIN, TOTAL 1.8 mg/dL H 0.2-1.2 ALKALINE PHOSPHATASE 164 U/L H 40-150 ALT(SGPT) 26 U/L 7-52 AST(SGOT) 17 U/L 5-34 Sep 26, 2020 01:31 [facility] DIFF COUNT (BLOOD)SCOPE Specimen Type: BLOOD PM [facility] No comment enter ed. Ordering Provider: CHUCK CAMPO Report Released Date/Time: Jul 06, 2020 11:32 AM Reporting Lab: [facility] [address] [facility] [address] Performing Lab: [facility] [address] [facility] [address] SEGS/NEUTROPHILS 26 % BANDS 0 % LYMPHS 70 % MONOS 3 % EOSINOPHILS 1 % PLT. EST NORM Adq NORMOCYTIC Yes NORMOCHROMIC Yes SMUDGE CELLS 1+ Sep 26, 2020 01:31 [place] BILIRUBIN, DIRECT Specimen Type: PLASMA PM [facility] Comment: Tests performed on [employer] (405) SN:[id number] Ordering Provider: CHUCK CAMPO Report Released Date/Time: Jul 06, 2020 11:32 AM Reporting Lab: [facility] [address] [facility] [address] Performing Lab: [facility] [address] [facility] [address] BILIRUBIN, DIRECT 0.7 mg/dl H 0-0.5 Social History: Smoking Status (Most current) and Tobacco Use (All prior to encounter date) This section includes the most current, and the historical, smoking and tobacco-related health factors from the [place] facility where the Encounter took place.Current Smoking Status This section includes the most current smoking, or tobacco-related health factor, from the [place] facility where the Encounter took place. Date/Time Current Smoking Status Comment Facility Jan 10, 2020 10:48 AM QUIT TOBACCO USE > 7 YEARS AGO [place] [facility] Tobacco Use History This section includes a history of the smoking, or tobacco-related health factors, that were collected on or before the date of the Encounter. The data comes from the [place] facility where the Encounter took place. Date/Time Smoking Status/Tobacco Use Comment [facility] Sep 21, 2019 03:54 PM QUIT TOBACCO USE > 7 [place]ARS [place] [facility] Dec 30, 2018 01:47 PM LIFETIME NON-TOBACCO USER [place] [facility] Aug 25, 2017 01:01 PM VA-TOBACCO FORMER USER [place] [facility] Aug 25, 2017 01:01 PM VA-TOBACCO QUIT 15 YRS [place] MORE [facility] Jan 07, 2017 05:34 PM QUIT TOBACCO USE > 7 YEARS [place] [facility] Jan 03, 2017 02:42 PM LIFETIME NON-TOBACCO USER [place] [facility] Nov 28, 2016 07:51 AM QUIT TOBACCO USE > 7 YEARS [place] AGO Former user of tobacco products quit years ago [facility] Jun 11, 2015 06:09 AM LIFETIME NON-TOBACCO USER LEWIS STOLL [facility] Nov 01, 2003 09:44 AM HISTORY OF SMOKING LEWIS STOLL [facility] Dec 21, 2002 11:18 AM QUIT TOBACCO USE > 7 YEARS [place] A[place] [facility] August 10, 2002 10:47 AM HISTORY OF SMOKING [facility]IS RODGERST [facility] Apr 27, 2001 09:29 AM HISTORY OF SMOKING [facility]ODGERST [facility] Advance Directives: All historical and current Section Date Range: From patient's date of to the date document was created. This section includes ALL of a patient's completed or amended [place] Advance and Rescinded Directives. The entries below indicate that a directive exists for the patient, but an actual copy is not included with this document. The data comes from all [place] facilities. Date Advance Directives Provider Source August 08, 2015 ADVANCE DIRECTIVE LEWIS [place] [facility] Encounter Notes: All associated encounter notes This section contains the clinical notes associated to the Encounter. Date/Time Encounter Note(s) Provider Source Sep 18, 2020 01:15 PM TELEPHONE ENCOUNTER NOTE: TUNG GARDUNO [facility] LOCAL TITLE: VISN 1 CCC MED RENEWAL [facility] STANDARD TITLE: TELEPHONE ENCOUNTER NOTE DATE OF NOTE: SEP 18, 2020@13:15:34 ENTRY DATE: SEP 18, 2020@13:17:01 AUTHOR: TUNG GARDUNO EXP COSIGNER: URGENCY: STATUS: COMPLETED Type of call: PHARMACY. Caller Response: ADM CALL RESOLVED SPOUSE called in for CHAVADAPHNE ANGELICA ([phone]) . Comments: Please renew and mail his Omeprazole. Evaluation/Management Code: HC PRO PHONE CALL 5- 10 MIN ([id number]). Starting at: 09/18/2020 @ 1:15:34 PM Ending at: 09/18/2020 @ 1:16:27 PM Length: 0 minutes. Author: TUNG GARDUNO Caller Area: * [place] The following identifiers were used to verify th is patient: SSN. Chief Complaint: Not applicable to call. Class Code: Other specified counseling. Contact Patient's Email Address: /es/ TUNG GARDUNO [employer] Signed: 09/18/2020 13:17 Receipt Acknowledged By: * AWAITING SIGNATURE * KACEY MUNOZ
--- OUTSIDE RECORDS SUMMARY | 2021-05-02 13:57 | XMS_ITS ---
:1940 Author Organization [facility] Address [address] [place] [address] Care Team Providers Name Role Phone KEMAR [...] MEDICARE MEDICARE PART Apr 16, PART A [id number] Edwina LARSEN OBE PATIENT (WNR) (M) A 2007 08A 1 RT Selected Encounter This section includes the information on record at [place] for the Encounter. 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 Date/Time Primary/Secondary Diagnosis Name Provider Source Diagnosis July 31, 2020 PRIMARY Chronic CHUCK CAMPO 09:38 AM lymphocytic leuk [facility] of B-cell type not achieve remis Plan of Treatment: Future Appointments (+ 6 months) and Future Tests (+/- 45 days) The Plan of Treatment section includes future care activities for the patient from all [facility] treatment facilities. This section includes future appointments and future orders which are active, pending or scheduled.Future Appointments This section includes appointments that were scheduled to occur 6 months from the date of the Encounter, up to a maximum of 20 appointments. The data comes from all [facility]. Appointment Date/Time Appointment Type Appointment Facili ty Name Sep 26, 2020 02:00 PM AMBULATORY - MEDICINE [facility] Lab Results: +/- 30 days of the encounter This section includes the Chemistry and Hematology Lab Results on record with [place] for the patient. Radiology Reports and Pathology Reports are provided separately, in subsequent sections.Lab Results This section contains the Chemistry/Hematology Results that were resulted 30 days before or 30 days after the date of the Encounter. Date/Time Source Result Type Result - Unit Interpretation Reference Range Comment Jul 06, 2020 10:[address] [facility] CBC PROFILE Specimen Type: BLOOD Comment: Criticals repeated,called to,read back by: Kevin @[id number] Ordering Provider: CHUCK CAMPO Report Released Date/Time: Apr 11, 2020 02:42 PM Reporting Lab: [facility] [address] [facility] [address] Performing Lab: [facility] [address] [facility] [address] WBC 37.5 10*3/uL HH 4.5-11.0 RBC 6.05 10*6/uL H 4.23-5.66 HGB 16.4 g/dl 12.8-17 HEMATOCRIT 50.6 % H 39.2-50.4 MCV 83.6 fl 82-99 MCH 27.1 pg 26.2-32.6 MCHC 32.4 g/dl 30.8-35.1 PLT 180 10*3/uL 140-360 MPV 9.9 fl 9.2-12.4 RDW 14.3 % 12.0-16.0 LYMPH % 82.5 % H 14.0-42.3 MONO % 1.8 % L 5.1-13.7 NEUT % 14.0 % L 43.7-75.8 EOS % 0.9 % 0.4-6.8 BASO % 0.5 % 0.1-2.0 IG % 0.3 % 0.0-0.7 NUCLEATED RED CELLS 0.0 /100 WBC 0.0-0.0 ABSOLUTE IG 0.1 10*3/uL H 0-0.06 ABSOLUTE BASOPHILS 0.2 10*3/uL H 0.01-0.13 ABSOLUTE EOS. 0.3 10*3/uL 0.03-0.44 ABSOLUTE LYMPHOCYTES 31.0 10*3/uL H 1.0-3. 2 ABSOLUTE MONOCYTES 0.7 10*3/uL 0.3-1.1 ABSOLUTE GRANULOCYTES 5.2 10*3/uL 2.2-7. 6 ABSOLUTE NRBC 0.00 10*3/uL 0-0 Jul 06, [address] [facility] GLU,BUN,CREAT,LYTES,CA Specimen Type: PLASMA 10:36 AM [facility] Comment: Added by [id number] on Jul 06, 2020@11:18 Tests performed on [employer] (405) [id number] Ordering Provider: CHUCK CAMPO Report Released Date/Time: Apr 11, 2020 02:42 PM Reporting [facility] [address] [facility] [address] Performing Lab: [facility] [address] [facility] [address] UREA NITROGEN 17 mg/dL 7-25 SODIUM 137 mmol/L 135-145 POTASSIUM 4.0 mmol/L 3.5-5.0 CHLORIDE 104 mmol/L 100-110 CARBON DIOXIDE 24 mmol/L 20-30 ANION GAP 9 mmol/L 4-16 GLUCOSE 206 mg/dL H 65-100 CREATININE 1.21 mg/dl 0.5-1.5 CALCIUM 9.1 mg/dL 8.5-10.5 eGFR 58 mL/min L >60 Jul 06, 2020 10:[address] [facility] LIVER PROFILE Specimen Type: PLASMA Comment: Added by [id number] on Jul 06, 2020@11:18 Tests performed on [employer] (405) [id number] Ordering Provider: CHUCK CAMPO Report Released Date/Time: Apr 11, 2020 02:42 PM Reporting Lab: [facility] [address] [facility] [address] Performing Lab: [facility] [address] [facility] [address] PROTEIN, TOTAL 7.2 g/dL 6.0-8.5 ALBUMIN 3.8 g/dL 3.2-5.0 BILIRUBIN, TOTAL 1.4 mg/dL H 0.2-1.2 ALKALINE PHOSPHATASE 124 U/L 40-150 ALT(SGPT) 27 U/L 7-52 AST(SGOT) 19 U/L 5-34 Jul 06, 2020 LEWIS MARTINEZ T DIFF COUNT (BLOOD)SCOPE Specimen Type: BLOOD 10:36 AM [facility] Comment: Criticals repeated,called to,read back by: Kevin @[id number] Ordering Provider: CHUCK CAMPO Report Released Date/Time: Apr 11, 2020 02:42 PM Reporting Lab: [place] [facility] [address] [facility] [address] Performing Lab: [facility] [address] [facility] [address] SEGS/NEUTROPHILS 13 % LYMPHS 85 % MONOS 2 % PLT. EST NORM Adq SMUDGE CELLS 1+ Jul 06, 2020 10:36 [place] BILIRUBIN, DIRECT Specimen Type: PLASMA AM [facility] Comment: Added by [id number] on Jul 06, 2020@11:18 Tests performed on [employer] (405) SN:[id number] Ordering Provider: CHUCK CAMPO Report Released Date/Time: Apr 11, 2020 02:42 PM Reporting [facility] [address] [facility] [address] Performing Lab[facility] [address] [facility] [address] BILIRUBIN, DIRECT 0.5 mg/dl 0-0.5 Vital Signs: All taken on the encounter date This section contains inpatient and outpatient Vital Signs collected on the date of the Encounter. Date/Time Temperature Pulse Blood Respiratory SP02 Pain Height Weight Eladio dy Source Pressure Rate Mass Index Jul 06, 97.8 F 86 145/84 18 /min 93 % 0 198.9 36 WHITE 2020 11:18 /min mm[Hg] lb [place] [facility] Social History: Smoking Status (Most current) and Tobacco Use (All prior to encounter date) This section includes the most current, and the historical, smoking and tobacco-related health factors from the [place] facility where the Encounter took place.Current Smoking Status This section includes the most current smoking, or tobacco-related health factor, from the [place] facility where the Encounter took place. Date/Time Current Smoking Status Comment Facility Jan 10, 2020 10:48 AM QUIT TOBACCO USE > 7 YEARS AGO [place] [facility] Tobacco Use History This section includes a history of the smoking, or tobacco-related health factors, that were collected on or before the date of the Encounter. The data comes from the [place] facility where the Encounter took place. Date/Time Smoking Status/Tobacco Use Comment [facility] Sep 21, 2019 03:54 PM QUIT TOBACCO USE > 7 YEARS [place] A[place] [facility] Dec 30, 2018 01:47 PM LIFETIME NON-TOBACCO USER [place] [facility] Aug 25, 2017 01:01 PM VA-TOBACCO FORMER USER [place] [facility] Aug 25, 2017 01:01 PM VA-TOBACCO QUIT 15 YRS [place] MORE [facility] Jan 07, 2017 05:34 PM QUIT TOBACCO USE > 7 YEARS [place] A[place] [facility] Jan 03, 2017 02:42 PM LIFETIME NON-TOBACCO USER [place] [facility] Nov 28, 2016 07:51 AM QUIT TOBACCO USE > 7 YEARS [place] A[place] Former user of tobacco products quit years ago [facility] Jun 11, 2015 06:09 AM LIFETIME NON-TOBACCO USER [place] [facility] Nov 01, 2003 09:44 AM HISTORY OF SMOKING [place] [facility] Dec 21, 2002 11:18 AM QUIT TOBACCO USE > 7 YEARS [place] A[place] [facility] August 10, 2002 10:47 AM H[place]ORY OF SMOKING [place] [facility] Apr 27, 2001 09:29 AM HISTORY OF SMOKING [place] [facility] Advance Directives: All historical and current Section Date Range: From patient's date of to the date document was created. This section includes ALL of a patient's completed or amended [place] Advance and Rescinded Directives. The entries below indicate that a directive exists for the patient, but an actual copy is not included with this document. The data comes from all [place] facilities. Date Advance Directives Provider Source August 08, 2015 ADVANCE DIRECTIVE [place] MARIA T [facility] Encounter Notes: All associated encounter notes This section contains the clinical notes associated to the Encounter. Date/Time Encounter Note(s) Provider Source Jul 06, 2020 09:34 AM HEMATOLOGY AND ONCOLOGY NOTE: CHELE CAMPO [facility] LOCAL TITLE: Hematology Note/Medicine [facility] STANDARD TITLE: HEMATOLOGY AND ONCOLOGY NOTE DATE OF NOTE: JUL 06, 2020@09:34 ENTRY DATE: JULY 31, 2020@09:34:49 AUTHOR: KEVINCHUCK ULRICH EXP COSIGNER: URGENCY: STATUS: COMPLETED 79 year old male returns for follow up [...] 01/2020 resumed and continued, tolerated Interval Hx/ROS Pt reports feeling well. Denies fevers, night sw eats, weight loss, palpable nodes, bleeding. No recent illnesses. He has no concerns. SOCIAL HISTORY: Living Status/Marital Status:. 2nd marri age x30 + years. 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 50 + pk yr. Alcohol: Infrequent Etoh. Heavier for a short p eriod surrounding his divorce. Drugs: FAMILY HISTORY: Mother- in her 80s from unknown causes [...] HCL 1MG CAP TAKE ONE CAPSULE BY M OUTH AT ACTIVE BEDTIME FOR PROSTATE. THIS REPLACES TAMSU LOSIN. Active Non-VA Medications Status 1) Non-VA GLUCOSAMINE CAP/TAB BY MOUTH EVERY DAY ACTIVE 5 Total Medications PHYSICAL EXAM: BP: 145/84 (07/06/2020 11:18) Pulse: 86 (07/06/2020 11:18) Temp: 97.8 F [36.6 C] (07/06/2020 11:18) Resp: 18 (07/06/2020 11:18) HT(in): 62 in [157.5 cm] (04/19/2019 13:55) WT(lbs):198.9 lb [90.4 kg] (07/06/2020 11:18) 07/06/20 @ 1118 PULSE OXIMETRY: 93 General: alert, appropriately conversant, NAD HEENT: normocephalic, atraum atic, PERRLA, EOMI, mmm, oropharynx without lesions or exudates Neck: no palpable LAD in neck, supra/infraclav, axillary areas bilaterally CVS: rrr, no MRG Chest: CTAB, no crackles or wheezes Abdomen: NABS, soft, NT, ND, no palpable organom egaly Lower extremities: no significant edema, palpabl e cords, erythema, warmth or calf tenderness Skin: no rashes or concerning lesion Psych: Appropriate affect and mood. Neuro: independently ambulatory, moving all 4, C N2-12 grossly intact LABS BLOOD Apr Apr 11 Re ference 2020 2020 10:36 12:59 Units Ranges WBC 37.5 H* 54.3 H*10*3/uL 4 .5 - 11 RBC 6.05 H 5.71 H 10*6/uL 4 .23 - 5.66 HGB 16.4 15.0 g/dl 1 2.8 - 17 HCT 50.6 H 48.6 % 3 9.2 - 50.4 MCV 83.6 85.1 fl 8 2 - 99 MCH 27.1 26.3 pg 2 6.2 - 32.6 MCHC 32.4 30.9 g/dl 3 0.8 - 35.1 PLT 180 176 10*3/uL 1 40 - 360 MPV 9.9 9.9 fl 9 .2 - 12.4 IPF 10.092 % 0 - 8.5 RDW 14.3 13.9 % 1 2 - 16 RDW-SD fl 3 8 - 50 NEUT % 14.0 L canc % 4 3.7 - 75.8 LYMPH % 82.5 H canc % 1 4 - 42.3 MONO % 1.8 L canc % 5 .1 - 13.7 EOS % 0.9 canc % . 4 - 6.8 BASO % 0.5 canc % .1 - 2 IG% 0.3 canc % 0 - .7 NRBC #/100WBC 0 - 0 NEUT# 5.2 canc 10*3/uL 2 .2 - 7.6 Lymph# 31.0 H canc 10*3/uL 1 - 3.2 MONO# 0.7 canc 10*3/uL . 3 - 1.1 PLASMA GLUCOSE BUN CR EAT EGFR NA Ref range low 65 7 .5 60 135 Ref range high 100 25 1 .5 145 mg/dL mg/dL mg /dl mL/min mmol/L [a] Jul 06, 2020 10:36 206 H 17 1.2 58 L 137 [c] Apr 11, 2020 12:59 221 H 20 1.1 >60 135 PLASMA K CL CO2 ANI GA CA P Ref range low 3.5 100 20 4 8.5 Ref range high 5 110 30 16 10.5 mmol/L mmol/L mmol/ L mmol/L mg/dL [a] Jul 06, 2020 10:36 4.0 104 24 9 9.1 [c] Apr 11, 2020 12:59 4.3 105 21 9 9.0 PLASMA T BILI D BILI ALK PH G-G TP SGOT SGPT FIB-4 O Ref range low .2 0 40 1 0 5 7 Ref range high 1.2 .5 150 6 5 34 52 2.67 mg/dL mg/dl U/L U /L U/L U/L INDEX [a] Jul 06, 2020 10:36 1.4 H 0.5 124 19 27 [e] Apr 11, 2020 12:59 1.3 H 0.5 128 21 27 A/P: 79 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 DOing well on current dose. We will continue mark s. rtc 3 months with labs. He was encouraged to sharmila l with concerns in the mean time. /myranda/ CHUCK Alston NATURITA Staff Physician Hematology/Oncology Signed: 07/31/2020 09:38
--- OUTSIDE RECORDS SUMMARY | 2021-05-02 13:57 | XMS_ITS ---
:1940 Author Organization [facility] [address] Address [address] [place] [address] Care Team Providers Name Role Phone KEMAR [...] MEDICARE MEDICARE PART Apr 16, PART A [id number] Edwina LARSEN OBE PATIENT (WNR) (M) A 2007 08A 1 RT Selected Encounter This section includes the information on record at [place] for the Encounter. 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 Date/Time Primary/Secondary Diagnosis Name Provider Source Diagnosis Sep 26, 2020 PRIMARY Chronic ALBERCHUCK H [place] 02:20 PM lymphocytic leuk T [facility] of B-cell type not achieve [...] [facility] Appointment Date/Time Appointment Type Appointment [place] N[place] ty Name Jan 16, 2021 01:00 PM AMBULATORY - MEDICINE [facility] Lab Results: +/- 30 days of the encounter This section includes the Chemistry and Hematology Lab Results on record with [place] for the patient. Radiology Reports and Pathology Reports are provided separately, in subsequent sections.Lab Results This section contains the Chemistry/Hematology Results that were resulted 30 days before or 30 days after the date of the Encounter. Date/Time Source Result Type Result - Unit Interpretation Reference Range Comment Sep 26, 2020 01:31 PM [facility] CBC PROFILE Specimen Type: BLOOD No comment enter ed. Ordering Provider: CHUCK CAMPO Report Released Date/Time: Jul 06, 2020 11:32 AM Reporting Lab: [facility] [address] [facility] [address] Performing Lab: [facility] [address] [facility] [address] WBC 16.3 10*3/uL H 4.5-11.0 RBC 5.42 [...] NRBC 0.00 10*3/uL 0-0 Sep 26, 2020 [facility] P4 GLU,BUN,CREAT,LYTES,CA Specimen Type: PLASMA 01:31 PM [facility] Comment: Tests performed on [employer] (405) [id number] Ordering Provider: CHUCK CAMPO Report Released Date/Time: Jul 06, 2020 11:32 AM Reporting Lab: [facility] [address] [facility] [address] Performing Lab: [facility] [address] [facility] [address] UREA NITROGEN 12 mg/dL 7-25 SODIUM 136 mmol/L 135-145 POTASSIUM 4.2 mmol/L 3.5-5.0 CHLORIDE 105 mmol/L 100-110 CARBON DIOXIDE 22 mmol/L 20-30 ANION GAP 9 mmol/L 4-16 GLUCOSE 237 mg/dL H 65-100 CREATININE 1.15 mg/dl 0.5-1.5 CALCIUM 9.2 mg/dL 8.5-10.5 eGFR 62 mL/min >60 Sep 26, 2020 01:31 PM [facility] LIVER PROFILE Specimen Type: PLASMA Comment: Tests performed on [employer] (405) SN:[id number] Ordering Provider: CHUCK CAMPO Report Released Date/Time: Jul 06, 2020 11:32 AM Reporting Lab: [facility] [address] [facility] [address] Performing Lab: [facility] [address] [facility] [address] PROTEIN, TOTAL 6.6 g/dL 6.0-8.5 ALBUMIN 3.4 g/dL 3.2-5.0 BILIRUBIN, TOTAL 1.8 mg/dL H 0.2-1.2 ALKALINE PHOSPHATASE 164 U/L H 40-150 ALT(SGPT) 26 U/L 7-52 AST(SGOT) 17 U/L 5-34 Sep 26, 2020 01:31 [place] DIFF COUNT (BLOOD)SCOPE Specimen Type: BLOOD PM [facility] No comment enter ed. Ordering Provider: CHUCK CAMPO Report Released Date/Time: Jul 06, 2020 11:32 AM Reporting Lab: [facility] [address] [facility] [address] Performing Lab: [facility] [address] [facility] [address] SEGS/NEUTROPHILS 26 % BANDS 0 % LYMPHS 70 % MONOS 3 % EOSINOPHILS 1 % PLT. EST NORM Adq NORMOCYTIC Yes NORMOCHROMIC Yes SMUDGE CELLS 1+ Sep 26, 2020 01:31 [place] BILIRUBIN, DIRECT Specimen Type: PLASMA PM [facility] Comment: Tests performed on [employer] (405) [id number] Ordering Provider: CHUCK CAMPO Report Released Date/Time: Jul 06, 2020 11:32 AM Reporting Lab: [facility] [address] [facility] [address] Performing Lab: [facility] [address] [facility] [address] BILIRUBIN, DIRECT 0.7 mg/dl H 0-0.5 Vital Signs: All taken on the encounter date This section contains inpatient and outpatient Vital Signs collected on the date of the Encounter. Date/Time Temperature Pulse Blood Respiratory SP02 Pain Height Weight Eladio dy Source Pressure Rate Mass Index Sep 26, 98.2 F 82 143/91 20 /min 94 % 0 203.4 37 WHITE 2020 01:50 /min mm[Hg] lb [place] [facility] Social History: Smoking Status (Most current) and Tobacco Use (All prior to encounter date) This section includes the most current, and the historical, smoking and tobacco-related health factors from the [place] facility where the Encounter took place.Current Smoking Status This section includes the most current smoking, or tobacco-related health factor, from the [place] facility where the Encounter took place. Date/Time Current Smoking Status Comment Facility Jan 10, 2020 10:48 AM QUIT TOBACCO USE > 7 YEARS AGO [facility] Tobacco Use History This section includes a history of the smoking, or tobacco-related health factors, that were collected on or before the date of the Encounter. The data comes from the [place] facility where the Encounter took place. Date/Time Smoking Status/Tobacco Use Comment Juan M man Sep 21, 2019 03:54 PM QUIT TOBACCO USE > 7 YEARS [place] A[place] [facility] Dec 30, 2018 01:47 PM LIFETIME NON-TOBACCO USER [place] [facility] Aug 25, 2017 01:01 PM VA-TOBACCO FORMER USER [place] [facility] Aug 25, 2017 01:01 PM VA-TOBACCO QUIT 15 YRS [place] MORE [facility] Jan 07, 2017 05:34 PM QUIT TOBACCO USE > 7 YEARS [place] A[place] [facility] Jan 03, 2017 02:42 PM LIFETIME NON-TOBACCO USER [place] [facility] Nov 28, 2016 07:51 AM QUIT TOBACCO USE > 7 YEARS [place] AGO Former user of tobacco products quit years ago [facility] Jun 11, 2015 06:09 AM LIFETIME NON-TOBACCO USER [place] [facility] Nov 01, 2003 09:44 AM HISTORY OF SMOKING [place] [facility] Dec 21, 2002 11:18 AM QUIT TOBACCO USE > 7 YEARS [place] [facility] August 10, 2002 10:47 AM HISTORY OF SMOKING [place] [facility] Apr 27, 2001 09:29 AM HISTORY OF SMOKING [place] [facility] Advance Directives: All historical and current Section Date Range: From patient's date of to the date document was created. This section includes ALL of a patient's completed or amended [place] Advance and Rescinded Directives. The entries below indicate that a directive exists for the patient, but an actual copy is not included with this document. The data comes from all [place] facilities. Date Advance Directives Provider Source August 08, 2015 ADVANCE DIRECTIVE [place] MARIA T [facility] Encounter Notes: All associated encounter notes This section contains the clinical notes associated to the Encounter. Date/Time Encounter Note(s) Provider Source Sep 26, 2020 01:53 PM HEMATOLOGY AND ONCOLOGY NOTE: [place] LOCAL TITLE: Hematology Note/Medicine [facility] STANDARD TITLE: HEMATOLOGY AND ONCOLOGY NOTE DATE OF NOTE: SEP 26, 2020@13:53 ENTRY DATE: SEP 26, 2020@13:53:07 AUTHOR: CHUCK CAMPO EXP COSIGNER: URGENCY: STATUS: COMPLETED Hematology Note/Medicine Has ADDENDA 79 year old male returns for follow [...] weight loss, palpable nodes, bleeding. No recent i llnesses. He has no concerns. He states that he has a very pruritic rash diffusely, just like rashes he has had intermittently in the past for the past few ye ars, very pruritis, he reports that bactrim from Dr. Rivera led to rash resolution in the past. Other t madera the rash which is very bothersome, he does not have any concerns. No re turn of leg swelling. SOCIAL HISTORY (from record): Living Status/Marital Status:. [...] ACTIVE 5 Total Medications PHYSICAL EXAM: BP: 143/91 (09/26/2020 13:50) Pulse: 82 (09/26/2020 13:50) Temp: 98.2 F [36.8 C] (09/26/2020 13:50) Resp: 20 (09/26/2020 13:50) HT(in): 62 in [157.5 cm] (04/19/2019 13:55) WT(lbs):203.4 lb [92.5 kg] (09/26/2020 13:50) 09/26/20 @ 1350 PULSE OXIMETRY: 94 General: alert, appropriately conversant, NAD HEENT: normocephalic, [...] 4, C N2-12 grossly intact LABS BLOOD Luiz Jul 06 Apr 11 Reference 2020 2020 2020 13:31 10:36 12:59 Units Ranges WBC 16.3 H 37.5 H* 54.3 H*1 0*3/uL 4.5 - 11 RBC 5.42 6.05 H 5.71 H 1 0*6/uL 4.23 - 5.66 HGB 14.8 16.4 15.0 g/dl 12.8 - 17 HCT 45.4 50.6 H 48.6 % 39.2 - 50.4 MCV 83.8 83.6 85.1 fl 82 - 99 MCH 27.3 27.1 26.3 pg 26.2 - 32.6 MCHC 32.6 32.4 30.9 g/dl 30.8 - 35.1 PLT 165 180 176 1 0*3/uL 140 - 360 MPV 9.6 9.9 9.9 fl 9.2 - 12.4 IPF 10.092 % 0 - 8.5 RDW 13.9 14.3 13.9 % 12 - 16 RDW-SD fl 38 - 50 NEUT % 25.5 L 14.0 L canc % 43.7 - 75.8 LYMPH % 69.1 H 82.5 H canc % 14 - 42.3 MONO % 2.9 L 1.8 L canc % 5.1 - 13.7 EOS % 1.6 0.9 canc % .4 - 6.8 BASO % 0.7 0.5 canc % .1 - 2 IG% 0.2 0.3 canc % 0 - .7 NRBC # /100WBC 0 - 0 NEUT# 4.2 5.2 canc 1 0*3/uL 2.2 - 7.6 Lymph# 11.3 H 31.0 H canc 1 0*3/uL 1 - 3.2 MONO# 0.5 0.7 canc 1 0*3/uL .3 - 1.1 A/P: 79 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 DOing well on current dose. We will continue thi s. I communicated with Dr. Lai about his rash - I noted that in prior [place] note he communicated with her in the past. Bactrim ca lled to pharmacy. rtc 3 months with labs. He was encouraged to sharmila l with concerns in the mean time. /myranda/ CHUCK CAMPO Staff Physician Hematology/Oncology Signed: 09/26/2020 14:20 Receipt Acknowledged By: 09/27/2020 08:43 /myranda/ KACEY Laura MD 09/26/2020 ADDENDUM STATUS: COMPLETED I note the bilirubin of 1.8 which resulted after he left. If this is due to the ibrutinib, would be c/w grade 1 (1.5x ULN) and t herefore okay to continue. He has had increased bilis of v arying degrees in the past, current value not worse than prior increases. /myranda/ CHUCK CAMPO Staff Physician Hematology/Oncology Signed: 09/26/2020 14:26 09/27/2020 ADDENDUM STATUS: COMPLETED Discussed with Dr. Campo at the time of the vi sit. History of folliculitis, rash is similar per patient report as we ll as detailed description in MD note. Bactrim issued to window. /myranda/ KACEY Laura MD Signed: 09/27/2020 08:48
[2021-05-04 13:01] LABS: COVID-19 RT-PCR UVMMC Result Negative (Negative)
== END 2021-05-02 13:24 | disposition home or self-care (01) ==
LOC: LBN 13:23
PROVIDERS: Visit Provider Physician Assistant Medical
DX: Z20.822 Contact with and (suspected) exposure to COVID-19 (principal)
CPT/HCPCS: U0003

== ENCOUNTER 2023-06-15 13:25 | Outpatient (REF) | payer OTHER, MEDICARE, SELFPAY | END 2023-06-15 13:26 | disposition home or self-care (01) | LOC: LBN 13:25 | PROVIDERS: PCP Nurse Practitioner Family | DX: N32.89 Other specified disorders of bladder (principal); R82.998 Other abnormal findings in urine; Z87.440 Personal history of urinary (tract) infections | CPT/HCPCS: 87077; 87086; 87186 ==

== ENCOUNTER 2024-01-20 11:48 | Day surgery (SDC) | payer MEDICARE, SELFPAY ==
--- NOTE | 2024-01-19 19:08 | W.PROCNOTE ---
Date of service: 01/20/24 Procedure Note Date of procedure: 01/20/24 Procedure: therapuetic paracentesis Surgeon/Proceduralist/Physician: Jose Parikh Procedure Diagnosis: tense ascites
--- NOTE | 2024-01-19 19:09 | W.PM.DSUDISC ---
Date of service: 01/20/24 Discharge Plan Disposition Patient Disposition: Home Condition: Good Discharge Details Reason For Visit: paracentesis Attending Provider: Jose Parikh Primary Care Provider: Mayuri Blanton Home Meds and New Rx's Prescriptions: Continued docusate sodium 100 mg capsule 100 mg PO DAILY Ensure Liquid PO Rx Instructions: As directed. sennosides [Evac-U-Gen (sennosides)] 8.6 mg tablet 8.6 mg PO DAILY Jardiance 25 mg tablet 25 mg PO DAILY Lactobacillus acidophilus 1 billion cell capsule 1,000 mmu cells PO BID lisinopril 5 mg tablet 5 mg PO DAILY omeprazole 20 mg capsule,delayed release(DR/EC) 20 mg PO DAILY polyethylene glycol 3350 [Miralax] 17 gram/dose powder 17 g PO DAILY PRN ibuprofen 400 mg tablet 400 mg PO Q8H PRN loperamide 2 mg capsule 2 mg PO Q6H PRN (Reason: loose stool) Qty: 14 0RF hydrocodone-acetaminophen 5-325 mg tablet 1 tab PO BID MDD 10mg PRN (Reason: pain) Qty: 20 0RF morphine 15 mg tablet 15 mg PO TID MDD 3 tabs PRN (Reason: pain) Qty: 30 0RF Rx Instructions: May cut in half palliative care patient morphine concentrate 100 mg/5 mL (20 mg/mL) solution See Rx Instructions PO Q1H PRN MDD 120 mg Qty: 30 0RF Rx Instructions: 0.25-1.0 orally every 1 hour, as needed; HOSPICE lorazepam 1 mg tablet 1 mg PO Q4H PRN (Reason: anxiety) Qty: 7 5RF Rx Instructions: hospice Discharge Instructions Remove Dressings/Wound Care:: 24 hours Shower/Bathe:: 24 hours Diet:: As Tolerated DS: Diagnosis Discharge Diagnosis (1) Tense ascites: Status: Acute
[2024-01-20 12:35] VITALS: BP 105/58; PULSE 56; RESP 16; TEMP 37.1; O2SAT 96
== END 2024-01-20 11:49 | disposition home or self-care (01) ==
LOC: SUR 11:49
PROVIDERS: PCP Nurse Practitioner Family; Visit Provider Surgery
DX: Z53.09 Procedure and treatment not carried out because of other contraindication (principal)

== ENCOUNTER 2024-02-28 11:18 | Outpatient (REF) | payer OTHER, SELFPAY ==
[2024-02-28 14:08] LABS: Bilirubin Negative (Negative); Blood Large (Negative); Clarity Cloudy (Clear); Glucose Negative (Negative); Ketones Negative (Negative); Leukocyte Esterase Large (Negative); Nitrite Negative (Negative); Urobilinogen 0.2 mg/dL (Up to 0.2); pH 5.5 (5-8)
[2024-02-28 14:16] LABS: Bacteria Few HPF (Negative); C & S Indicated? Yes; Casts 0-2 Hyaline LPF (Negative); Crystals Moderate Amorphous HPF (Negative); Epithelial Cells Few HPF (Negative); Mucus Trace (Negative); RBC 20-50 HPF (0-2); WBC >50 HPF (0-5)
== END 2024-02-28 11:19 | disposition home or self-care (01) ==
LOC: LBN 11:18
PROVIDERS: PCP Nurse Practitioner Family; Visit Provider Nurse Practitioner
DX: N39.0 Urinary tract infection, site not specified (principal); R82.89 Other abnormal findings on cytological and histological examination of urine
CPT/HCPCS: 81003; 81015; 87086